=== PATIENT | female | born 1980 | race Caucasian/White ===

== ENCOUNTER 2017-01-22 17:30 | Emergency (ER) | payer BC ==
[~2017-01-22 17:30] MED LIST: ACET500CAP PO; ALYACEN 1/35 PO; ASAB PO; ASPERCREME TOP; BIOTIN5 MG PO; CALTRA600D PO; CITRACAL PO; CLARIT10 PO; CO Q-10100 MG PO; CORDARONE PO; COREG3 PO; COREG6 PO; CYANO1000T PO; DEMA10T PO; ELIQUIS 5 MG TAB5 MG PO; FIORICET 50-301 EACH PO; FLEX PO; FLINTSTONE3 PO; GLUCPH PO; IRON PO; K500 PO; LIPITOR40 PO; LOP25 PO; LYRICA50 PO; MAXALT10 MG PO; MELA3 PO; MULTIVIT/MIN PO; NORCO1 TA2 PO; NYSTATPOW TOP; OCEAN NAS; PAX10 PO; PLAVIX PO; PR12.5 PO; PR25 PO; PRILOSEC40 MG PO; PRIN2.5 PO; PROTONIX PO; REM15 PO; SACU1TAB PO; SPIRO25 PO; STOOL SOFTNER OTC PO; TOPAMAX50 MG PO; ULTRAM50 PO; VITAMIN B SL; VITAMIN B-12 PO; VITAMIN D2000 UNIT PO; VITAMIN D31000 UNIT PO; X5 PO; ZANAFLEX 4 MG TA4 MG PO; [UNRECOGNIZED DRUG - CODE] PO; [UNRECOGNIZED DRUG - OTHER] PO; [UNRECOGNIZED DRUG - REMARK]; [UNRECOGNIZED DRUG - REMARK] PO
[2017-01-22 19:37] LABS: BASOPHILS 0.3 %; BASOPHILS ABSOLUTE 0.04 10/3/uL (0.0-0.16); EOSINOPHILS 0.8 %; EOSINOPHILS ABSOLUTE 0.12 10/3/uL (0.0-0.53); HEMOGLOBIN 12.4 g/dL (12.0-16.0); IMMATURE GRANULOCYTES 0.3 %; IMMATURE GRANULOCYTES ABSOLUTE 0.04 10/3/uL (0.0-0.11); LYMPHOCYTES 14.6 %; LYMPHOCYTES ABSOLUTE 2.25 10/3/uL (0.67-4.30); MEAN CORPUS HGB CONC 32.8 g/dL (32.0-36.0); MEAN CORPUSCULAR HEMOGLOB 33.1 pg (26.0-34.0); MEAN CORPUSCULAR VOLUME 100.8 fL (80-100); MEAN PLATELET VOLUME 10.7 fL (9.2-13.0); MONOCYTES 6.4 %; MONOCYTES ABSOLUTE 0.99 10/3/uL (0.21-1.20); NEUTROPHILS 77.6 %; NEUTROPHILS ABSOLUTE 11.94 10/3/uL (2.02-8.40); PLATELET COUNT 224 10/3/uL (150-400); RBC DISTRIBUTION WIDTH 12.8 % (12.0-16.0); RED CELL COUNT 3.75 10/6/uL (4.0-5.6)
[2017-01-22 19:38] LABS: HEMATOCRIT 37.8 % (36.0-48.0); MANUAL DIFF NO %; WHITE BLOOD CELLS 15.4 10/3/uL (4.5-10.5)
[2017-01-22 19:48] LABS: INTERNATIONAL NORMAL RATI 1.3 UNITS (-); PARTIAL THROMBO TIME 30.9 SEC (22.5-37.2)
[2017-01-22 19:54] LABS: BUN (BLOOD UREA NITROGEN) 25 MG/DL (6-23); CALCIUM, SERUM 8.8 MG/DL (8.5-10.4); CHEST PAIN PROFILE TAT 0 Hrs 22 Mins; CHLORIDE, SERUM 104 MMOL/L (96-112); CO2 (CARBON DIOXIDE) 28 MMOL/L (24-34); CREATININE 1.21 MG/DL (0.55-1.02); GFR AFRICAN AMERICAN 67 ML/MIN (>=60); GFR NON AFRICAN AMERICAN 58 ML/MIN (>=60); GLUCOSE, SERUM 101 MG/DL (60-99); POTASSIUM, SERUM 4.3 MMOL/L (3.5-5.3); SODIUM, SERUM 138 MMOL/L (135-148); TROPONIN I <0.02 NG/ML (<0.05)
[2017-01-22 20:05] LABS: INFLUENZA A SCREEN NEGATIVE (NEGATIVE); INFLUENZA B SCREEN NEGATIVE (NEGATIVE)
[2017-01-22 20:53] LABS: ASCORBIC ACID (UR NOT ORDER) NEG (NEG); BILIRUBIN, URINE NEGATIVE (NEG); ER URINALYSIS TAT 0 Hrs 09 Mins; KETONE, URINE NEGATIVE (NEG); LEUKOCYTE ESTERASE(NOT OR NEG (NEG); NITRITE (URINE) NEG (NEG); WBC (NOT ORDERED) (RFLEX) 2 (0-5)
== END 2017-01-22 21:57 | disposition home or self-care (01) ==
LOC: ER 17:30
PROVIDERS: Emergency Medicine
DX: J40 Bronchitis, not specified as acute or chronic (principal); R50.9 Fever, unspecified; D72.829 Elevated white blood cell count, unspecified; I48.91 Unspecified atrial fibrillation; Z87.01 Personal history of pneumonia (recurrent); I25.5 Ischemic cardiomyopathy; Z95.810 Presence of automatic (implantable) cardiac defibrillator; Z98.84 Bariatric surgery status; Z88.6 Allergy status to analgesic agent; Z79.899 Other long term (current) drug therapy; Z79.82 Long term (current) use of aspirin
CPT/HCPCS: 71010; 80048; 81001; 83735; 83880; 84145; 84484; 84703; 85025; 85610; 85730; 87040; 87804; 93005; 99284; A9270-GY